=== PATIENT | male | born 1990 | race Caucasian/White ===

== ENCOUNTER 2021-04-02 08:53 | Observation (INO) | payer OTHER ==
[~2021-04-02] VITALS: Ht 188 cm; Wt 93.0 kg
[2021-04-02 09:43] LABS: HEMOGLOBIN 15.2 gm/dl (14.0-17.5); RED BLOOD COUNT 4.8 M/UL (4.20-5.50); WHITE BLOOD COUNT 17.1 K/UL (4.5-11.0)
[2021-04-02 10:17] LABS: BUN/CREATININE RATIO 12 (0-10)
[2021-04-03 05:05] LABS: HEMOGLOBIN 14.8 gm/dl (14.0-17.5); RED BLOOD COUNT 4.72 M/UL (4.20-5.50); WHITE BLOOD COUNT 15.6 K/UL (4.5-11.0)
[2021-04-05] MEDS ORDERED: COLACE100 MG PO (09:20)
[2021-04-05] MEDS ORDERED: HYDROCODON-ACE1 EAC2 PO (09:20)
[2021-04-05] MEDS ORDERED: BACTRIM DS TAB1 EACH PO (10:50)
== END 2021-04-05 14:03 | disposition home or self-care (01) ==
LOC: ER1 08:53 → CDU 12:11 → M/S 12:11
PROVIDERS: Physician Assistant; ADMIT Surgery
DX: K61.1 Rectal abscess (principal); K62.89 Other specified diseases of anus and rectum; Z20.822 Contact with and (suspected) exposure to COVID-19; Z79.891 Long term (current) use of opiate analgesic; Z79.899 Other long term (current) drug therapy
CPT/HCPCS: 36415; 80053; 81001; 85025; 85027; 87070; 87077; 87186; 87205; 96374; 96375; 96376; 99285; G0378; J1100; J2001; J2250; J2270; J2405; J2543; J2704; J3010; J7120; Q9967; U0002

== ENCOUNTER → 2021-04-06 | Outpatient (CLI) | payer OTHER ==
[~2021-04-06] MED LIST: BACTRIM DS TAB1 EACH PO; COLACE100 MG PO; HYDROCODON-ACE1 EAC2 PO
== END ==
LOC: OPSV 13:00
DX: K61.1 Rectal abscess (principal)
CPT/HCPCS: G0463

== ENCOUNTER → 2021-04-07 | Outpatient (CLI) | payer SELFPAY | LOC: OPSV 12:31 | DX: K61.1 Rectal abscess (principal) | CPT/HCPCS: G0463 ==

== ENCOUNTER → 2021-04-08 | Outpatient (CLI) | payer OTHER | LOC: OPSV 12:00 | DX: K61.1 Rectal abscess (principal) | CPT/HCPCS: G0463 ==

== ENCOUNTER → 2021-04-09 | Outpatient (CLI) | payer OTHER | LOC: OPSV 12:00 | DX: K61.1 Rectal abscess (principal) | CPT/HCPCS: G0463 ==

== ENCOUNTER → 2021-04-10 | Outpatient (CLI) | payer OTHER | LOC: OPSV 07:28 | DX: K61.1 Rectal abscess (principal) | CPT/HCPCS: G0463 ==